=== PATIENT | male | born 1965 | race Two or more races ===

== ENCOUNTER 2017-11-14 07:15 | Emergency (ER) | payer OTHER ==
[~2017-11-14] VITALS: Ht 185.4 cm; Wt 134.7 kg
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
[2017-11-14] MEDS ORDERED: QUETIAPINE FUMARATE 25 MG TABLET ONE (07:29)
[2017-11-14] MEDS ORDERED: clonazePAM 1 MG TABLET ONE (07:29)
[2017-11-14] MEDS ORDERED: clonazePAM 1 MG TABLET PO ONE (07:30)
[2017-11-14] MEDS ORDERED: QUETIAPINE FUMARATE 100 MG TABLET PO SCH (07:30)
[2017-11-14 07:52] LABS: BASOPHILS % (AUTO) 0.6 % (0.0-2.0); EOSINOPHILS % (AUTO) 0.8 % (0.0-6.0); HEMATOCRIT 40 % (39-51); HEMOGLOBIN 13.7 g/dL (13.5-17.5); LYMPHOCYTES # (AUTO) 1.5 /CMM (0.8-4.8); LYMPHOCYTES % (AUTO) 20.7 % (20.0-44.0); MEAN CORPUSCULAR HGB CONC 34 g/dl (31.0-36.0); MEAN CORPUSCULAR VOLUME 86 fL (80-96); MONOCYTES # (AUTO) 0.4 /CMM (0.1-1.30); MONOCYTES % (AUTO) 5.5 % (2.0-12.0); NEUTROPHILS # (AUTO) 5.3 /CMM (1.8-8.9); NEUTROPHILS % (AUTO) 72.4 % (43.0-81.0); PLATELET COUNT (AUTO) 286 /CMM (150-450); RDW COEFFICIENT OF VARIATION 14.3 (11.5-15.0); RED BLOOD CELL COUNT(AUTO) 4.67 MIL/uL (4.5-6.0); WHITE BLOOD COUNT (AUTO) 7.3 K/uL (4.3-11.0)
[2017-11-14] MEDS ORDERED: ALBUTEROL FS 2.5 MG/0.5 ML VIAL.NEB NEB ONE (08:00)
[2017-11-14] MEDS ORDERED: ALBUTEROL FS 2.5 MG/0.5 ML VIAL.NEB ONE (08:02)
[2017-11-14 08:04] LABS: CALCIUM, SERUM 9.2 mg/dL (8.5-10.1); POTASSIUM 3.9 mmol/L (3.5-5.1)
[2017-11-14 08:18] LABS: ALBUMIN 3.7 g/dL (3.4-5.0); BILIRUBIN,DIRECT 0.2 mg/dL (0.0-0.2); BILIRUBIN,TOTAL 0.6 mg/dL (0.2-1.0); TOTAL PROTEIN, SERUM 7.7 g/dL (6.4-8.2)
[2017-11-14 08:19] LABS: SALICYLATE 2.3 mg/dL (2.8-20.0)
[2017-11-14] MEDS ORDERED: Fluoxetine 10 mg capsule PO ONE (09:00)
[2017-11-14 10:34] LABS: BILIRUBIN,URINE SMALL (NEGATIVE); BLOOD, URINE Moderate Ery/uL (NEGATIVE); KETONES,URINE 15 (NEGATIVE); LEUKOCYTE ESTERASE ,URINE Negative (NEGATIVE); NITRITE, URINE Negative (NEGATIVE); PH,URINE 5.5 (5.0-8.0); PROTEIN,URINE 30 mg/dl (NEGATIVE); UGLUCOSE Negative (NEGATIVE); UROBILINOGEN,URINE 0.2 EU/dL (0.2)
[2017-11-14 10:37] LABS: APPEARANCE,URINE HAZY (CLEAR); COLOR,URINE DARK YELLOW (YELLOW)
--- NOTE | 2017-11-14 10:39 | NUR ---
URINE OBTAINED SENT TO LAB
[2017-11-14 10:46] LABS: BACTERIA,URINE None seen /HPF (None Seen); SQUAMOUS EPITHELIAL CELL,UR Rare /HPF (None Seen); WBC,URINE 0-2 /HPF (0-3)
[2017-11-14 10:47] LABS: MUCUS,URINE Few /LPF (None Seen)
--- NOTE | 2017-11-14 12:43 | NUR ---
[place] [facility] [place] BY DR VALDOVINOS. CALL [phone] FOR REPORT.
[2017-11-14] MEDS ORDERED: ACETAMINOPHEN 325 MG TABLET PO ONE (15:30)
[2017-11-14] MEDS ORDERED: ACETAMINOPHEN 325 MG TABLET ONE (15:35)
--- NOTE | 2017-11-14 16:14 | NUR ---
CALLED ANANDA TO ARRANGE A S TRANSPORT TO [facility]. ETA OF 1635 WAS GIVEN.
[2017-11-14 17:17] VITALS: BP 126/84
== END 2017-11-14 17:19 | disposition home or self-care (01) ==
LOC: ER 07:17
DX: R45.851 Suicidal ideations (principal); J44.9 Chronic obstructive pulmonary disease, unspecified; I10 Essential (primary) hypertension; Z91.14 Patient's other noncompliance with medication regimen
CPT/HCPCS: 36415; 80048; 80076; 80305; 80329; 81001; 85025; 94640; 99284; A4606; G0480 ×2; Z7610; 81000-TC

== ENCOUNTER 2018-07-15 03:18 | Inpatient (IN) | payer OTHER ==
[2018-07-15] VITALS (38 sets, daily range): BP systolic 63–127; BP diastolic 28–99
[~2018-07-15] VITALS: Ht 175.3 cm; Wt 96.2 kg
--- NOTE | 2018-07-15 03:20 | NUR ---
PT BIBRA C/O SOB AND HYPERVENTILATING FROM [facility]. PT TACHYPNIC AND TACHYCARDIC. PT AAXO4. FOLLOWS COMMANDS. PT PUT ON THE MONITOR AND PULSE. AWAITING EVAL FROM EDMAR COLLIER.
[2018-07-15] MEDS ORDERED: LORAZEPAM INJ 2 MG/ML VIAL ONE (03:59)
[2018-07-15] MEDS ORDERED: LORAZEPAM INJ 2 MG/ML VIAL IV ONE (04:00)
[2018-07-15 04:10] LABS: BASOPHILS # (AUTO) 0.2 /CMM (0.0-0.2); BASOPHILS % (AUTO) 1.1 % (0.0-2.0); EOSINOPHILS % (AUTO) 0.1 % (0.0-6.0); HEMATOCRIT 43 % (39-51); HEMOGLOBIN 14.6 g/dL (13.5-17.5); LYMPHOCYTES # (AUTO) 2.1 /CMM (0.8-4.8); LYMPHOCYTES % (AUTO) 10.7 % (20.0-44.0); MEAN CORPUSCULAR HGB CONC 34 g/dl (31.0-36.0); MEAN CORPUSCULAR VOLUME 86 fL (80-96); MONOCYTES # (AUTO) 1.6 /CMM (0.1-1.30); MONOCYTES % (AUTO) 8.3 % (2.0-12.0); NEUTROPHILS # (AUTO) 15.4 /CMM (1.8-8.9); NEUTROPHILS % (AUTO) 79.8 % (43.0-81.0); PLATELET COUNT (AUTO) 413 /CMM (150-450); RED BLOOD CELL COUNT(AUTO) 5.04 MIL/uL (4.5-6.0); WHITE BLOOD COUNT (AUTO) 19.3 K/uL (4.3-11.0)
--- NOTE | 2018-07-15 04:10 | NUR ---
XRAY AT BEDSIDE.
[2018-07-15 04:25] LABS: CALCIUM, SERUM 9.4 mg/dL (8.5-10.1); CARBON DIOXIDE 22 mmol/L (21-32); CHLORIDE 100 mmol/L (98-107); CREATININE 1.6 mg/dL (0.6-1.3); GLUCOSE 149 mg/dL (74-106); POTASSIUM 4.1 mmol/L (3.5-5.1); SODIUM SERUM 137 mmol/L (136-145); UREA NITROGEN, BLOOD 15 mg/dL (7-18)
[2018-07-15 04:36] LABS: ALANINE AMINOTRANSFERASE 18 U/L (12-78); ALBUMIN 3.3 g/dL (3.4-5.0); ALKALINE PHOSPHATASE 104 U/L (46-116); ASPARTATE AMINOTRANSFERASE 15 U/L (15-37); B-TYPE NATRIURETIC PEPTIDE 304 PG/ML (0-125); BILIRUBIN,DIRECT 0.2 mg/dL (0.0-0.2); BILIRUBIN,TOTAL 0.8 mg/dL (0.2-1.0)
--- NOTE | 2018-07-15 04:45 | NUR ---
RT AT BEDSIDE FOR ABG.
--- NOTE | 2018-07-15 04:52 | NUR ---
EKG 2 CANCELLED BY EDMAR COLLIER.
--- NOTE | 2018-07-15 04:55 | NUR ---
ER MD, 3 RT, AND RN AT BEDSIDE EVALUATING PT VENTILATION IN THE 60'S. PT TACHYPNIC AND TACHYCARDIC.
--- NOTE | 2018-07-15 04:57 | NUR ---
PT POSITIONED IN HIGH-FOWLERS, RESPIRATIONS DECCREASED TO 30S.
[2018-07-15] MEDS ORDERED: PROPOFOL 100 ML IV PRN (05:00)
[2018-07-15] MEDS ORDERED: ETOMIDATE 2 MG/ML VIAL IV ONE (05:00)
[2018-07-15] MEDS ORDERED: SUCCINYLCHOLINE CHLORIDE 20 MG/ML VIAL IV ONE (05:00)
[2018-07-15] MEDS ORDERED: PIPERACILLIN /TAZOBACTAM 4.5 G in IV D5W 50 ML IV ONE (05:00)
[2018-07-15] MEDS ORDERED: VANCOMYCIN 2 GM in IV D5W 250 ML IV ONE (05:00)
[2018-07-15] MEDS ORDERED: IV NS 0.9% 1,000 ML BAG IV ONE (05:00)
--- NOTE | 2018-07-15 05:15 | NUR ---
PT PUT ON BIPAP, 20/8 50% O2. PT SATURATION 98% AND TACHYPNIC AT 40s, TACHYCARDIC AT 130S. ER AWARE.
[2018-07-15] MEDS ORDERED: VANCOMYCIN 500 MG VIAL ONE (05:21)
[2018-07-15] MEDS ORDERED: methylPREDNISolone SOD SUCC 125 MG/2ML VIAL IV ONE (05:30)
[2018-07-15] MEDS ORDERED: HEPARIN INFUSION/D5W 500 ML IV PRN (05:30)
[2018-07-15] MEDS ORDERED: methylPREDNISolone SOD SUCC 125 MG/2ML VIAL ONE (05:35)
[2018-07-15 05:36] LABS: BAND % (MANUAL) 3 % (0.0-5.0); LYMPHOCYTES % (MANUAL) 9 % (16-48); METAMYELOCYTES % 1 % (0-0); MONOCYTES % (MANUAL) 6 % (0-11.0); NEUTROPHILS % (MANUAL) 81 (42-76)
[2018-07-15] MEDS ORDERED: HEPARIN INFUSION/D5W 500 ML IV ONE (05:47)
--- NOTE | 2018-07-15 05:50 | NUR ---
ULTRASOUND AT BEDSIDE.
[2018-07-15] MEDS ORDERED: LEVALBUTEROL HCL NEB 1.25 MG/0.5 ML VIAL.NEB NEB SCH ×2 (06:00→07:35)
[2018-07-15] MEDS ORDERED: IPRATROPIUM NEB FS 0.5 MG/2.5 ML AMPUL.NEB NEB ONE (06:00)
[2018-07-15] MEDS ORDERED: HEPARIN SODIUM, PORCINE 5000 UNITS/1 ML VIAL ONE (06:19)
--- NOTE | 2018-07-15 06:20 | NUR ---
RT PT PLACED ON BIPAP PER MD ORDER ON CHARTED SETTINGS. ALARMS SET AND AUDIBLE. AMBUBAG AT BEDSIDE. BIPAP CONNECTED TO RED OUTLET. Addendum: 07/15/18 at 0622 by RHEA HUMPHRIES RT Amended: Links added.
--- NOTE | 2018-07-15 06:20 | NUR ---
PT TACHYPNIC AND TACHYCARDIC ON THE MONITOR, SATURATION 98% ON THE BIPAP. ER AWARE.
[2018-07-15] MEDS ORDERED: Z GUARD REMEDY 2 OZ OINT TP PRN (06:30)
[2018-07-15] MEDS ORDERED: HEPARIN SODIUM, PORCINE 5000 UNITS/1 ML VIAL IV ONE (06:30)
[2018-07-15] MEDS ORDERED: MAGNESIUM HYDROXIDE 30 ML UDC PO PRN (06:30)
[2018-07-15] MEDS ORDERED: ACETAMINOPHEN 325 MG TABLET PO PRN (06:30)
[2018-07-15] MEDS ORDERED: ONDANSETRON HCL/PF 4 MG/2 ML VIAL IVP PRN (06:30)
--- NOTE | 2018-07-15 06:50 | NUR ---
HEPARIN BOLUS AND DRIP VERIFIED WITH PHARMACIST. SECOND RN ABRAM CO-SIGN HEPARIN BOLUS AND DRIP.
[2018-07-15 06:57] LABS: ABG OXYGEN SATURATION 93.9 % (92.0-98.5); ABG PCO2 27.7 mmHg (35.0-45.0); ABG PH 7.526 (7.350-7.450); ABG PO2 70.6 mmHg (75.0-100.0); AaDO2 125.2 mmHg; COHb 1.1 % (0.5-1.5); MetHb 0.3 % (0.0-1.5); O2Hb 92.6 % (94.0-97.0); SITE, ABG Right Radial
--- NOTE | 2018-07-15 07:16 | NUR ---
RT AT BEDSIDE FOR ABG BLOOD DRAW.
[2018-07-15 07:27] LABS: ABG BASE EXCESS -2.2 mmol/L; ABG OXYGEN SATURATION 98.1 % (92.0-98.5); ABG PCO2 29.3 mmHg (35.0-45.0); ABG PH 7.461 (7.350-7.450); ABG PO2 122.7 mmHg (75.0-100.0); AaDO2 200.8 mmHg; COHb 0.6 % (0.5-1.5); MetHb 0.4 % (0.0-1.5); O2Hb 97.1 % (94.0-97.0); SITE, ABG Right Radial; VENT MODE, BG ST 20/8 RR 20 50%
--- NOTE | 2018-07-15 07:30 | NUR ---
REPORT GIVEN TO JESSE RODARTE FOR HUGO.
--- NOTE | 2018-07-15 07:50 | NUR ---
ACCESS REP: got pt. from ER, Dx: Resp/failure, sepsis, on heparin gtt 1800u/h now d/t PE?, CT was NOT done: overweight and pt.can/t lying flat by report, pt.is awake/Ox1, can follow simple commands, but drowsy (unable to get history correct inf.), on bipap 20/8, 50%FiO2, RR 20-26, SR, BP 93/67, got 2L NS in ER, pH 7.52/27/70, skin is intact, all Atbxs given by report, urinated via underwear, PTT 33
[2018-07-15] MEDS ORDERED: ALLO100T PO (07:53)
[2018-07-15] MEDS ORDERED: BENZ1LOZ12 MM (07:53)
[2018-07-15] MEDS ORDERED: METH500T PO (07:53)
[2018-07-15] MEDS ORDERED: QUET300T2 PO (07:53)
[2018-07-15] MEDS ORDERED: ASPI-1169 PO (07:53)
[2018-07-15] MEDS ORDERED: QUET25TA PO (07:53)
[2018-07-15] MEDS ORDERED: MULT-24 PO (07:53)
[2018-07-15] MEDS ORDERED: ATOR10TA PO (07:53)
[2018-07-15] MEDS ORDERED: FLUO-120 PO (07:53)
[2018-07-15] MEDS ORDERED: BUPR100T6 PO (07:53)
[2018-07-15] MEDS ORDERED: ZOLP10TA6 PO (07:53)
[2018-07-15] MEDS ORDERED: IBUP-1955 PO (07:53)
[2018-07-15] MEDS ORDERED: AMLO10TA7 PO (07:53)
[2018-07-15] MEDS ORDERED: ALBU18HF2 IH (07:53)
[2018-07-15] MEDS ORDERED: LORA1TAB PO (07:53)
[2018-07-15] MEDS ORDERED: HYDR-4384 PO (07:53)
--- NOTE | 2018-07-15 08:00 | NUR ---
CHIEF OPERATOR HYDROFORMER: no order for next PTT by protocol, will reevaluate, pt.is on Heparin gtt, no IVF by report, belong.form is not in chart
[2018-07-15] MEDS ORDERED: FEE PK DOSING 1 MIN EA MC ONE (08:42)
--- NOTE | 2018-07-15 09:00 | NUR ---
YEAST SUPERVISOR: applied two BP cuffs for correct monitoring/obesity, SBP 75-107, SR, Bipap beeping/adjusted mask position, called RT
--- NOTE | 2018-07-15 09:30 | NUR ---
MASON APPRENTICE: placed order for PTT at 12.45, is in room, updated with pt.history, orders, VS, meds, Heparin gtt, spoke with RT, d/domingo bipap, continue O2n/c.
[2018-07-15] MEDS: methylPREDNISolone SOD SUCC 40 MG/ML VIAL IV SCH ×3 (09:58→17:11)
--- NOTE | 2018-07-15 10:30 | NUR ---
EMERGENCY DEPARTMENT DIRECTOR: was in room, updated by charge nurse, ordered: cardiac diet
[2018-07-15] MEDS: IPRATROPIUM NEB FS 0.5 MG/2.5 ML AMPUL.NEB NEB SCH ×3 (11:00→19:46)
[2018-07-15] MEDS ORDERED: PIPERACILLIN /TAZOBACTAM 4.5 G in IV D5W 50 ML IV SCH (12:00)
--- NOTE | 2018-07-15 12:20 | NUR ---
SENIOR PROJECT MANAGER: D-dimer 0.54, charge nurse sent message for
--- NOTE | 2018-07-15 12:30 | NUR ---
NEIGHBORHOOD PLANNER: PTT 75.8 now, Heparin gtt rate adjustment down by 200inys, continue 1600 units/h
--- NOTE | 2018-07-15 12:35 | NUR ---
ELECTRONICS ENGINEERING MANAGER: sent message back: stop Heparin gtt, pt.refused ABG
--- NOTE | 2018-07-15 12:39 | NUR ---
ATTEMPTED ABG ONCE. UNABLE TO GET ABG. PT REFUSED AND STATED HE "DOESNT WANT THE ABG AND WANTS TO BE DISCHARGED."
--- NOTE | 2018-07-15 12:45 | NUR ---
SHANK SCOURER: charge nurse evaluated Dr.Peleg schaeffer
--- NOTE | 2018-07-15 13:00 | NUR ---
GREY PERCHER: updated, ordered: UA, pt.is still refusing to use urine container to urine, denies bladder scanner, said: I am doing everything when I want to do.
--- NOTE | 2018-07-15 13:10 | NUR ---
BALLISTICS PROFESSOR: pt.is A/Ox3, needy, uncooperative, O2sat. now over 95%, no SOB, no wheezing, SR, no any pain now, skin care is done, refused to check BP, oriented again re: Dx, risks, POC, said: I am going to discharge soon.
[2018-07-15] MEDS: PIPERACILLIN /TAZOBACTAM 3.375 G in IV D5W 100 ML IV SCH ×2 (14:08→21:01)
[2018-07-15] MEDS: ALBUTEROL FS 2.5 MG/0.5 ML VIAL.NEB NEB SCH ×2 (14:17→19:46)
[2018-07-15 16:37] LABS: APPEARANCE,URINE CLEAR (CLEAR); BILIRUBIN,URINE NEGATIVE (NEGATIVE); BLOOD, URINE TRACE-INTA Ery/uL (NEGATIVE); COLOR,URINE DARK YELLO (YELLOW); KETONES,URINE TRACE (NEGATIVE); LEUKOCYTE ESTERASE ,URINE NEGATIVE (NEGATIVE); NITRITE, URINE NEGATIVE (NEGATIVE); PH,URINE 5.5 (5.0-8.0); PROTEIN,URINE 2+ mg/dl (NEGATIVE); UGLUCOSE NEGATIVE (NEGATIVE); UROBILINOGEN,URINE 0.2 EU/dL (0.2)
[2018-07-15 17:01] LABS: BACTERIA,URINE Rare /HPF (None Seen); HYALINE CASTS, URINE Few /LPF (None Seen); MUCUS,URINE Moderate /LPF (None Seen); SQUAMOUS EPITHELIAL CELL,UR None Seen /HPF (None Seen)
--- NOTE | 2018-07-15 17:45 | NUR ---
SENIOR ADULTS DIRECTOR: got pt. from ER with bag with cell phone, purse, documents, belt, underwear, asking: were is his cloths, shoes, ER confirmed: nothing there, pt.calls to SNF to get it. Pt. is uncooperative, removed EKG leads, [id number], BP cuff again, reapplied/got aware need to monitoring d/t low BP episodes, stated needs albuterol pills (no neb.), notified RT/RT spoke with pt for resp.Tx reevaluation, will notify next shift, charge nurse is aware. was paged by charge nurse/called back/aware to verify pt.home meds, pt.came from [facility], pharmacy notified.
[2018-07-15] MEDS ORDERED: IBUPROFEN 600 MG TABLET PO PRN (18:30)
[2018-07-15] MEDS ORDERED: HYDROCODONE/APAP 5/325MG 1 EACH TABLET PO PRN (18:30)
[2018-07-15] MEDS ORDERED: METHOCARBAMOL (500MG) 500 MG TABLET PO PRN (18:30)
--- NOTE | 2018-07-15 18:51 | NUR ---
NET MAKING SUPERVISOR: pharmacy called, creatinine 1.6, Huy needs to be verify with MD tomorrow, will notify next nurse
[2018-07-15] MEDS ORDERED: MENTHOL/CETYLPYRD (CEPACOL) 1 LOZ LOZENGE MM PRN (19:00)
[2018-07-15] MEDS ORDERED: ALBUTEROL FS 2.5 MG/0.5 ML VIAL.NEB NEB PRN (19:30)
--- NOTE | 2018-07-15 19:30 | NUR ---
Received patient AAO X 4 ambulating in room off monitoring and evaluation advisor,O2 NC and pulse OX.He said wants to wash himself and will call when done.IVF not started since am shift.No acute distress noted.Patient very loud and shouting.Reminded patient he is in ICU to tone down his voice.
[2018-07-15] MEDS: IV NS 0.9% 1,000 ML IV PRN (19:58)
[2018-07-15] MEDS ORDERED: QUETIAPINE FUMARATE 100 MG TABLET ONE (20:19)
[2018-07-15] MEDS ORDERED: ATORVASTATIN 10 MG TABLET ONE (20:19)
[2018-07-15] MEDS: QUETIAPINE FUMARATE 100 MG TABLET PO SCH (20:22)
[2018-07-15] MEDS: ATORVASTATIN 10 MG TABLET PO SCH (20:23)
--- NOTE | 2018-07-15 20:23 | NUR ---
Patient demanded his scheduled medications at 2200 be given now and asking for food and juice. He is always on the phone and shouting.Able to connect to surveillance system monitor,BP and pulse ox but refused oxygen even if he is desat to 87%-89%.Mendon administered for pain.
[2018-07-15] MEDS: HYDROCODONE/APAP 5/325MG 1 EACH TABLET PO PRN (20:24)
[2018-07-15] MEDS: ZOLPIDEM TARTRATE 5 MG TABLET PO PRN (21:54)
--- NOTE | 2018-07-15 21:55 | NUR ---
Patient demanded to have more juice and food and Ambien for sleep.Provided sandwich and apple juice.Explained to patient that he is to limit fluid intake due to elevated BNP. But remain non compliant.Continue to monitor.
--- NOTE | 2018-07-15 22:30 | NUR ---
Placed on Bipap by Lyle MIGUEL.Settings 20/8,FIO2 50% rate 20.Tolerating well.
[2018-07-15] MEDS: VANCOMYCIN 1.5 GM in IV D5W 500 ML IV SCH (23:45)
[2018-07-16] VITALS (18 sets, daily range): BP systolic 89–124; BP diastolic 37–81
--- NOTE | 2018-07-16 | NUR ---
Crackers provided as requested.
[2018-07-16] MEDS: ALBUTEROL FS 2.5 MG/0.5 ML VIAL.NEB NEB SCH ×4 (01:18→19:56)
--- NOTE | 2018-07-16 02:00 | NUR ---
Patient doze off and on.VS stable.IVF infusing well.
--- NOTE | 2018-07-16 03:25 | NUR ---
Patient requested Bipap off RT at bedside.Patient disconnected self from surveillance monitor,BP and pulse ox.Ambulated to restroom independently.No distress noted.Voided.Refused to use urinal.
--- NOTE | 2018-07-16 03:45 | NUR ---
Patient back from restroom with his street clothes on shirt and short.Asked patient to use hospital gown but he just put on top of his clothes.Provide tooth brush,tooth paste and mouth wash as requested.Refused to use O2 Nasal cannula.SPO2 90%.No distress noted.
[2018-07-16 04:29] LABS: BASOPHILS # (AUTO) 0.1 /CMM (0.0-0.2); BASOPHILS % (AUTO) 0.6 % (0.0-2.0); EOSINOPHILS % (AUTO) 0.1 % (0.0-6.0); HEMATOCRIT 37 % (39-51); HEMOGLOBIN 12.2 g/dL (13.5-17.5); LYMPHOCYTES # (AUTO) 1.1 /CMM (0.8-4.8); LYMPHOCYTES % (AUTO) 5.1 % (20.0-44.0); MEAN CORPUSCULAR HGB CONC 33 g/dl (31.0-36.0); MEAN CORPUSCULAR VOLUME 87 fL (80-96); MONOCYTES # (AUTO) 0.7 /CMM (0.1-1.30); MONOCYTES % (AUTO) 3.2 % (2.0-12.0); NEUTROPHILS # (AUTO) 18.7 /CMM (1.8-8.9); PLATELET COUNT (AUTO) 327 /CMM (150-450); RED BLOOD CELL COUNT(AUTO) 4.23 MIL/uL (4.5-6.0); WHITE BLOOD COUNT (AUTO) 20.5 K/uL (4.3-11.0)
[2018-07-16 04:39] LABS: CALCIUM, SERUM 8.8 mg/dL (8.5-10.1); CREATININE 2.2 mg/dL (0.6-1.3); MAGNESIUM 1.9 mg/dL (1.8-2.4); PHOSPHORUS 3.4 mg/dL (2.5-4.9); POTASSIUM 3.7 mmol/L (3.5-5.1)
[2018-07-16 04:48] LABS: THYROID STIMULATING HORMONE 0.541 uIU/mL (0.358-3.74)
[2018-07-16] MEDS: PIPERACILLIN /TAZOBACTAM 3.375 G in IV D5W 100 ML IV SCH ×3 (05:03→20:25)
--- NOTE | 2018-07-16 06:32 | NUR ---
Patient resting appears comfortable.VS remains stable.SPO2 90%-91% in RA.Call light within reach.
--- NOTE | 2018-07-16 06:56 | NUR ---
Patient remains non compliant.With sob on exertion while ambulating to restroom. Refused O2 NC and not using urinal to measure output.
[2018-07-16] MEDS: IPRATROPIUM NEB FS 0.5 MG/2.5 ML AMPUL.NEB NEB SCH ×3 (07:14→19:55)
--- NOTE | 2018-07-16 07:30 | NUR ---
INITIAL PT RESTING IN BED ALERT AND ORIENTED X 3 WHEN ASKED HOW IS HE DOING TODAY PT STATES NOT GOOD AND C/O NECK AND BACK PAIN MEDICATIONS GIVEN. PT ON PROOF TECHNICIAN HELPER NSR 90'S PT HAS NS @ 75 MLS/HR THROUGH 18 G RIGHT FA AND H/L 20 LEFT WRIST BOTH SITES CLEAN DRY AND INTACT. PT GIVEN BREAKFAST TRAY BED IN LOW POSITION CALL ZIEGLER NEXT TO PT WILL CONTINUE TO MONITOR
[2018-07-16] MEDS: LORAZEPAM 1 MG TABLET PO PRN (08:10)
[2018-07-16] MEDS: HYDROCODONE/APAP 5/325MG 1 EACH TABLET PO PRN ×4 (08:10→23:12)
[2018-07-16] MEDS: ALLOPURINOL 100 MG TABLET PO SCH (09:30)
[2018-07-16] MEDS: methylPREDNISolone SOD SUCC 40 MG/ML VIAL IV SCH (09:30)
[2018-07-16] MEDS: buPROPion SR 100 MG TABLET.ER PO SCH (09:30)
[2018-07-16] MEDS: QUETIAPINE FUMARATE 100 MG TABLET PO SCH ×2 (09:30→21:18)
[2018-07-16] MEDS: MULTIVITAMINS,THERAGRAN 1 UDTAB TABLET PO SCH (09:30)
[2018-07-16] MEDS: FLUOXETINE HCL 20 MG CAPSULE PO SCH (09:30)
[2018-07-16] MEDS: AMLODIPINE BESYLATE 10 MG TABLET PO SCH (09:31)
--- NOTE | 2018-07-16 11:31 | NUR ---
PT EVALUATED BY PULP MILL TEAM LEADER URINE SAMPLE OBTAINED LAB CALLED. PT UP TO BATH ROOM FOR SAMPLE PT IN STREET CLOTHES STATES HE IS READY TO GO PT NOTIFIED PT IS DOWN GRADED WILL STAY IN HOSPITAL
--- NOTE | 2018-07-16 13:00 | NUR ---
PT TRANSFERRED FROM ICU VIA WHEELCHAIR. PT AWAKE A/OX4 , BREATHING UNLABORED AND EVEN ON NC 2L O2 SAT 95%IV LINE RFA FLUSHING WELL, L WRIST IV LINE REMOVED DUE TO PT COMPLAIN OF PAIN AT THE SITE. SKIN INTACT , NO COMPLAIN OF PAIN REPORTED AT THIS TIME. PT ON ANTIBIOTIC THERAPY .GAIT STEADY, AMBULATES NEEDED. PT ORIENTED TO THE UNIT. SAFETY MEASURES IN PLACE , CALL LIGHT WITHIN REACH
--- NOTE | 2018-07-16 13:35 | NUR ---
REPORT GIVEN TO [facility] FOR 3 WALKER PT TRANSFERRED TO [facility] SAFELY
[2018-07-16] MEDS: IV NS 0.9% 1,000 ML IV PRN (14:20)
[2018-07-16] MEDS: VANCOMYCIN 1.5 GM in IV D5W 500 ML IV SCH (17:25)
[2018-07-16 17:31] LABS: APPEARANCE,URINE CLEAR (CLEAR); BILIRUBIN,URINE NEGATIVE (NEGATIVE); BLOOD, URINE TRACE Ery/uL (NEGATIVE); COLOR,URINE YELLOW (YELLOW); KETONES,URINE NEGATIVE (NEGATIVE); LEUKOCYTE ESTERASE ,URINE NEGATIVE (NEGATIVE); NITRITE, URINE NEGATIVE (NEGATIVE); PH,URINE 5.5 (5.0-8.0); PROTEIN,URINE NEGATIVE (NEGATIVE); UGLUCOSE 1+ mg/dL (NEGATIVE); UROBILINOGEN,URINE 0.2 EU/dL (0.2)
[2018-07-16] MEDS: MAG HYDROX/AL HYDROX/SIMETH 30 ML UDC PO PRN (17:38)
[2018-07-16 17:42] LABS: BACTERIA,URINE None seen /HPF (None Seen); RBC,URINE 0-2 /HPF (0-2); SQUAMOUS EPITHELIAL CELL,UR Rare /HPF (None Seen); URIC ACID CRYSTALS,URINE Few /HPF (None Seen); WBC,URINE 0-2 /HPF (0-3)
[2018-07-16 17:43] LABS: EOSINOPHIL,URINE None Seen
[2018-07-16 17:48] LABS: URINE TOTAL PROTEIN 22.3 mg/dL (0-11.9)
--- NOTE | 2018-07-16 19:00 | NUR ---
SADDLE AND HARNESS MAKER OPENING NOTES Received patient A/O X4, on Liu's position on bed, watching TV. With patent peripheral IV line RAC G#18 with NS @ 75ml/hr hold, with Vanco on going. Patient complaints of heartburn, had Maalox 1.5 hours ago. On O2 @ 2LPM, saturating well. No SOB/respiratory distress noted. Kept bed low and locked, siderails x2. Call light at bedside. Will continue to monitor accordingly. Addendum: 07/16/18 at 2055 by JHONATHAN STOUT RN On tele - SR.
[2018-07-16] MEDS: ATORVASTATIN 10 MG TABLET PO SCH (21:18)
[2018-07-16] MEDS: ZOLPIDEM TARTRATE 5 MG TABLET PO PRN (21:18)
[2018-07-16] MEDS ORDERED: FAMOTIDINE (20 MG) 20 MG TABLET PO ONE (23:00)
--- NOTE | 2018-07-16 23:30 | NUR ---
VICE PRESIDENT OF PRODUCT MARKETING NOTES Patient complained heartburn, claiming Maalox not effective. Notified cotton feeder MD, with order Famotidine one time only - noted and carried out. Will continue to monitor accordingly.
[2018-07-17 00:27] VITALS: BP 100/61
[2018-07-17] MEDS: ALBUTEROL FS 2.5 MG/0.5 ML VIAL.NEB NEB SCH ×4 (01:30→20:15)
[2018-07-17] MEDS: PIPERACILLIN /TAZOBACTAM 3.375 G in IV D5W 100 ML IV SCH ×3 (05:11→20:18)
--- NOTE | 2018-07-17 06:24 | NUR ---
MICROARRAY OPERATIONS VICE PRESIDENT CLOSING NOTES Patient asleep on semi-Liu's position on bed with patent peripheral IV line with Zosyn on extended dose on going. On tele monitor with SR and occasional Sinus Tach 120 the highest. Able to ambulate self to bathroom. All due meds given as ordered, no ASE noted. On supplemental O2, saturating well. All nursing needs attended. Kept bed low and locked, siderail x2 up. Call light within easy reach. Endorsed to the next shift.
[2018-07-17 07:03] LABS: BASOPHILS # (AUTO) 0.1 /CMM (0.0-0.2); BASOPHILS % (AUTO) 0.4 % (0.0-2.0); EOSINOPHILS % (AUTO) 0.1 % (0.0-6.0); HEMATOCRIT 36 % (39-51); HEMOGLOBIN 11.8 g/dL (13.5-17.5); LYMPHOCYTES % (AUTO) 6.9 % (20.0-44.0); MEAN CORPUSCULAR HGB CONC 33 g/dl (31.0-36.0); MEAN CORPUSCULAR VOLUME 88 fL (80-96); MONOCYTES # (AUTO) 0.7 /CMM (0.1-1.30); MONOCYTES % (AUTO) 4.3 % (2.0-12.0); NEUTROPHILS # (AUTO) 13.3 /CMM (1.8-8.9); NEUTROPHILS % (AUTO) 88.3 % (43.0-81.0); PLATELET COUNT (AUTO) 370 /CMM (150-450); RED BLOOD CELL COUNT(AUTO) 4.09 MIL/uL (4.5-6.0)
[2018-07-17 07:35] LABS: ALBUMIN 2.5 g/dL (3.4-5.0); BILIRUBIN,TOTAL 0.2 mg/dL (0.2-1.0); CALCIUM, SERUM 8.8 mg/dL (8.5-10.1); CREATININE 1.5 mg/dL (0.6-1.3); MAGNESIUM 2.4 mg/dL (1.8-2.4); PHOSPHORUS 2.8 mg/dL (2.5-4.9); POTASSIUM 4.8 mmol/L (3.5-5.1); TOTAL PROTEIN, SERUM 6.7 g/dL (6.4-8.2)
[2018-07-17] MEDS: IPRATROPIUM NEB FS 0.5 MG/2.5 ML AMPUL.NEB NEB SCH ×3 (07:35→20:15)
--- NOTE | 2018-07-17 07:54 | NUR ---
BEAN DUMPER NOTES PATIENT IN BED RESTING ALERT, ORIENTED X3 DENIES ANY PAIN OR DISCOMFORTS.BED IN LOW LOCKED POSITION CALL LIGHT WITHIN REACH WILL CONTINUE TO MONITOR.
[2018-07-17 08:00] VITALS: BP 119/70
[2018-07-17] MEDS: methylPREDNISolone SOD SUCC 40 MG/ML VIAL IV SCH (08:40)
[2018-07-17] MEDS: FLUOXETINE HCL 20 MG CAPSULE PO SCH (08:40)
[2018-07-17] MEDS: MULTIVITAMINS,THERAGRAN 1 UDTAB TABLET PO SCH (08:40)
[2018-07-17] MEDS: AMLODIPINE BESYLATE 10 MG TABLET PO SCH (08:40)
[2018-07-17] MEDS: ALLOPURINOL 100 MG TABLET PO SCH (08:40)
[2018-07-17] MEDS: QUETIAPINE FUMARATE 100 MG TABLET PO SCH ×2 (08:40→21:11)
[2018-07-17] MEDS: buPROPion SR 100 MG TABLET.ER PO SCH (09:34)
[2018-07-17] MEDS: MAG HYDROX/AL HYDROX/SIMETH 30 ML UDC PO PRN ×2 (11:16→21:37)
[2018-07-17] MEDS: VANCOMYCIN 1.5 GM in IV D5W 500 ML IV SCH (12:06)
[2018-07-17] MEDS: LORAZEPAM 1 MG TABLET PO PRN ×2 (12:09→21:12)
--- NOTE | 2018-07-17 13:22 | NUR ---
Social service consult requested by Dr. Perea regarding pt. coming from [facility]. Pt. is a 53 -[place] male who was admitted to [facility] for respiratory failure. Pt. was initially in ICU for respiratory distress. LINDA met with pt. in his room. Pt. is alert and oriented x 4. Pt. was sitting in his chair and looking at his cellphone. Pt. had a defensive demeanor when answering questions. Pt. states he is homeless and has been for the past 3 years. Prior to being homeless, pt. was living with his before she got sick. Pt. states he is very Depressed and takes Seroquel and Wellbutrin. Pt. was at [facility] prior to coming to [facility]. Pt. is denying suicidal and homicidal ideations and visual/auditory hallucinations at this time. Pt. does not want to go to [facility]. LINDA offered pt. winter care home placement, however pt. got upset and declined. Pt. stated he has tried [facility], [facility] and [facility] and didn't find them helpful. Pt. is now linked with services from [facility]. Pt. states he had an appointment with [facility] on Tuesday last week, however he was hospitalized and couldn't go. Pt. will follow up with [facility] once discharged from [facility]. When LINDA inquired if he received any SSI, Pt. became upset and stated, " none of your business." LINDA informed LINDA she will offer him Homeless resources prior to his discharge from [facility]. No other social service needs are requested at this time. SW is available, if needed.
[2018-07-17 16:00] VITALS: BP 125/87
[2018-07-17] MEDS: LACTOBACILLUS RHAMNOSUS GG 1 EACH CAP.SPRINK PO SCH (17:29)
--- NOTE | 2018-07-17 18:40 | NUR ---
MS RN NOTES PATIENT IN BED RESTING NO SOB OR ACUTE DISTRESS NOTED. PATIENT ALERT, ORIENTED X3 ALL DUE MEDICATIONS ADMINISTERED. ALL NEEDS MET. NO ACUTE CHANGES NOTED. WILL ENDORSE TO PM SHIFT HUGO.
--- NOTE | 2018-07-17 19:10 | NUR ---
MS RN OPENING NOTES Received patient asleep on L sidelying position. With patent peripheral IV line RAC G#20 with NS infusing well @ 75ml/hr as ordered. On O2 inhalation @ 2LPM via NC, no SOB/respiratory distress noted. Kept bed low and locked, siderails X2 up. Call light at bedside. Will continue to monitor accordingly.
--- NOTE | 2018-07-17 19:51 | NUR ---
MS RODARTE CLOSING NOTES Received patient asleep on L sidelying position. With patent peripheral IV line RAC G#20 with NS infusing well @ 75ml/hr as ordered. On O2 inhalation @ 2LPM via NC, no SOB/respiratory distress noted. Kept bed low and locked, siderails X2 up. Call light at bedside. Will continue to monitor accordingly. Addendum: 07/18/18 at 0056 by JHONATHAN STOUT RN DUPLICATE
[2018-07-17 20:00] VITALS: BP 133/83
[2018-07-17] MEDS: ATORVASTATIN 10 MG TABLET PO SCH (21:11)
[2018-07-17] MEDS: HYDROCODONE/APAP 5/325MG 1 EACH TABLET PO PRN (21:12)
--- NOTE | 2018-07-17 22:00 | NUR ---
MS RODARTE OPENING NOTES Received patient asleep on L sidelying position. With patent peripheral IV line RAC G#20 with NS infusing well @ 75ml/hr as ordered. On O2 inhalation @ 2LPM via NC, no SOB/respiratory distress noted. Kept bed low and locked, siderails X2 up. Call light at bedside. Will continue to monitor accordingly. Addendum: 07/18/18 at 0057 by JHONATHAN STOUT RN WRONG TIME STAMP
--- NOTE | 2018-07-17 22:00 | NUR ---
MS RN NOTES Patient refused BiPAP. Explained the benefits of using BiPAP machine. Patient insisted to refused. Monitored closely.
[2018-07-18] MEDS: ALBUTEROL FS 2.5 MG/0.5 ML VIAL.NEB NEB SCH ×3 (01:19→13:30)
[2018-07-18] MEDS: PIPERACILLIN /TAZOBACTAM 3.375 G in IV D5W 100 ML IV SCH ×3 (04:00→13:23)
[2018-07-18 05:58] LABS: CALCIUM, SERUM 9.2 mg/dL (8.5-10.1); CREATININE 1.2 mg/dL (0.6-1.3); POTASSIUM 4.3 mmol/L (3.5-5.1)
[2018-07-18] MEDS: VANCOMYCIN 1.5 GM in IV D5W 500 ML IV SCH (06:07)
--- NOTE | 2018-07-18 06:32 | NUR ---
MS CLOSING NOTES Patient asleep on semi-Liu's position with patent peripheral IV line RFA G#20 with NS infusing well @ 75ml/hr as ordered. no s/x of infiltration noted. On RA, no SOB/respiratory distress noted. Patient refused the use of BiPAP at night. All due meds given as ordered, no ASE noted. All needs attended. Kept bed low and locked, side rails x 2 up. Call light at bedside. Afebrile the whole shift. No new unusualities noted. Endorsed to the next shift.
[2018-07-18 06:37] LABS: BASOPHILS # (AUTO) 0.1 /CMM (0.0-0.2); BASOPHILS % (AUTO) 0.9 % (0.0-2.0); EOSINOPHILS % (AUTO) 0.6 % (0.0-6.0); HEMATOCRIT 36 % (39-51); HEMOGLOBIN 12.1 g/dL (13.5-17.5); LYMPHOCYTES # (AUTO) 1.9 /CMM (0.8-4.8); LYMPHOCYTES % (AUTO) 18.7 % (20.0-44.0); MEAN CORPUSCULAR HGB CONC 33 g/dl (31.0-36.0); MEAN CORPUSCULAR VOLUME 88 fL (80-96); MONOCYTES # (AUTO) 0.7 /CMM (0.1-1.30); MONOCYTES % (AUTO) 6.9 % (2.0-12.0); NEUTROPHILS # (AUTO) 7.5 /CMM (1.8-8.9); NEUTROPHILS % (AUTO) 72.9 % (43.0-81.0); PLATELET COUNT (AUTO) 408 /CMM (150-450); RED BLOOD CELL COUNT(AUTO) 4.13 MIL/uL (4.5-6.0); WHITE BLOOD COUNT (AUTO) 10.3 K/uL (4.3-11.0)
--- NOTE | 2018-07-18 07:56 | NUR ---
MS RN NOTES PATIENT IN BED RESTING ALERT, ORIENTED X3 DENIES ANY PAIN OR DISCOMFORTS.BED IN LOW LOCKED POSITION CALL LIGHT WITHIN REACH WILL CONTINUE TO MONITOR.
[2018-07-18 08:00] VITALS: BP 125/83
[2018-07-18] MEDS: IPRATROPIUM NEB FS 0.5 MG/2.5 ML AMPUL.NEB NEB SCH ×2 (08:12→13:30)
[2018-07-18 08:47] VITALS: BP 125/83
[2018-07-18] MEDS: AMLODIPINE BESYLATE 10 MG TABLET PO SCH (08:47)
[2018-07-18] MEDS: MULTIVITAMINS,THERAGRAN 1 UDTAB TABLET PO SCH (08:47)
[2018-07-18] MEDS: LACTOBACILLUS RHAMNOSUS GG 1 EACH CAP.SPRINK PO SCH (08:47)
[2018-07-18] MEDS: methylPREDNISolone SOD SUCC 40 MG/ML VIAL IV SCH (08:47)
[2018-07-18] MEDS: FLUOXETINE HCL 20 MG CAPSULE PO SCH (08:47)
[2018-07-18] MEDS: QUETIAPINE FUMARATE 100 MG TABLET PO SCH (08:48)
[2018-07-18] MEDS: ALLOPURINOL 100 MG TABLET PO SCH (08:48)
[2018-07-18] MEDS: buPROPion SR 100 MG TABLET.ER PO SCH (08:53)
[2018-07-18 09:28] LABS: LYMPHOCYTES % (MANUAL) 12 % (16-48); MONOCYTES % (MANUAL) 8 % (0-11.0); NEUTROPHILS % (MANUAL) 80 (42-76)
[2018-07-18] MEDS ORDERED: METH4TAB3 PO (09:53)
[2018-07-18] MEDS ORDERED: LEVO750T21 PO (09:53)
--- NOTE | 2018-07-18 10:31 | NUR ---
LINDA and pt's RN Sana met with pt. to discuss discharge plan. Pt. states he is very depressed. Pt. wants voluntary psychiatric hospitalization stating he is suicidal with a plan to cut his wrists. LINDA to refer pt. to [facility], where pt. was prior to coming to [facility] on 07/15/18.
--- NOTE | 2018-07-18 10:35 | NUR ---
LINDA faxed clinical referral packet to intake at [facility] .
--- NOTE | 2018-07-18 11:51 | NUR ---
LINDA called intake at [facility] and spoke to Charmaine who informed SW that they will accept the pt. and accepting doctor is Dr. Mancia. Charmaine to call LINDA back once she speaks with the charge nurse at [facility] to give contact number for nurse to nurse report. Charmaine also informed LINDA to ask pt. to be nicer since pt. is rude to staff there as well as here at [facility]. LINDA called pt's RN Sana and updated her with the aforementioned information.
--- NOTE | 2018-07-18 13:00 | NUR ---
MS RN NOTES PATIENT NOTED AT NURSING STATION YELLING AT NURSING STAFF STATING HE NEEDS HIS IV REMOVED IMMEDIATELY AND WHY HAS HE BEEN WAITING THIS LONG TO BE DISCHARGED. CHARGE NURSE TRIED CALMING PATIENT AND ASKED PATIENT TO RETURN TO ROOM. PATIENT RETURNED TO ROM PERIPHERAL IV REMOVED EXPLAINED THAT WE ARE WAITING FOR BOND WRITER TO SEE IS [facility] IS [facility] PATIENT PER HIS REQUEST. PATIENT VERBALIZED UNDERSTANDING.
--- NOTE | 2018-07-18 14:59 | NUR ---
LINDA received a call from [facility] stating she spoke to gas charger Oliver at [facility] who informed her that they will not be able to accept pt. due to pt. being on Bipap at night and needing a sleep study. LINDA met with pt. bedside with [facility] and to inform him that [facility] did not accept him due to being on bipap. Pt. got upset and stated, " I don't need bipap." SW reiterated to the pt. that it [facility] decision to not accept pt. Pt. has his car in the parking lot and would like to get to his car. Taxi voucher was provided for transportation. Pt. was also provided with a sandwich and juice. SW gave pt. the following homeless resources: [phone] [facility], Homeless Resource directory. SW also gave pt. the following list of resources: Mental Health clinics [facility] [address] [place], [place] [id number] [facility] [place] [address] [facility], 2nd [place] [address] Main Number: Adult Full Service Partnership (AFSP): Contact [place] [facility] [address] [place] [address] [facility] [address] [place] [address] Healthcare Clinics for Homeless patients [facility] [address], [address] [place]. [place] Hours: M, T, Th, F 8:30AM-4:30PM Walk-ins allowed Provide medical screening and pharmacy [facility] [address] [place] [address] Hours M-F 8AM-3:30PM Walk-ins allowed Provide medical screening and pharmacy [facility] [address] [facility]. [place] [address] [phone] Hours 8AM-4:30PM Walk-ins allowed Provide medical screening and pharmacy Pt. accepted all of the above resources. Homeless Patient Waiver form was signed by the pt. and placed in pt's chart. No other social service needs are requested at this time. SW is available, if needed. Addendum: 07/18/18 at 1506 by JACOB MCKEON Pt's car is located at [address] [place] [address] in [facility] and taxi transportation was provided.
--- NOTE | 2018-07-18 15:00 | NUR ---
MS RN NOTES PATIENT DISCHARGED HOME [facility] DID NOT ACCEPT PATIENT FOR PSYCHIATRIC ADMISSION. PATIENT PROVIDED WITH TAXI VOUCHER. PATIENT NOTED TO BE AGGRESSIVE STAFF. CALLING STAFF MEMBERS NAMES. [place] [employer] INVOLVED. PATIENT REFUSED HOMELESS RESOURCES STATES HE HAS ALL THE RESOURCES HE NEEDS. PATIENT SIGNED DISCHARGE PAPERWORK. PRESCRIPTION PROVIDED PRESCRIPTION. VERBALIZES DISCHARGE UNDERSTANDING. IN STABLE CONDITION. ESCORTED TO TAXI BY HYDRAULIC PRESS OPERATOR.
[2018-07-19] MEDS ORDERED: predniSONE 20 MG TABLET PO SCH (09:00)
== END 2018-07-18 15:00 | disposition home or self-care (01) | DRG 720 ==
LOC: ER 03:19 → ICU 06:18 → TELE 07-16 13:08 → MED 07-17 10:54
PROVIDERS: ADMIT Family Medicine; ATTEND Nurse Practitioner Acute Care
PROC: 5A09357 Assistance with Respiratory Ventilation, Less than 24 Consecutive Hours, Continuous Positive Airway Pressure (ICD-10-PCS; principal; 2018-07-15)
DX: A41.9 Sepsis, unspecified organism (principal); N17.0 Acute kidney failure with tubular necrosis; J96.01 Acute respiratory failure with hypoxia; E44.1 Mild protein-calorie malnutrition; J18.9 Pneumonia, unspecified organism; F41.9 Anxiety disorder, unspecified; F31.9 Bipolar disorder, unspecified; J44.1 Chronic obstructive pulmonary disease with (acute) exacerbation; J44.0 Chronic obstructive pulmonary disease with (acute) lower respiratory infection; E66.01 Morbid (severe) obesity due to excess calories; F17.210 Nicotine dependence, cigarettes, uncomplicated; G47.33 Obstructive sleep apnea (adult) (pediatric); G89.29 Other chronic pain; R73.9 Hyperglycemia, unspecified; E88.09 Other disorders of plasma-protein metabolism, not elsewhere classified; K21.9 Gastro-esophageal reflux disease without esophagitis; M10.9 Gout, unspecified; Z68.31 Body mass index [BMI] 31.0-31.9, adult; F19.10 Other psychoactive substance abuse, uncomplicated; F39 Unspecified mood [affective] disorder; J98.11 Atelectasis; I10 Essential (primary) hypertension
CPT/HCPCS: 36415; 36600; 71045-TC; 76770-TC; 80048-TC; 80053-TC; 80061-TC; 80076-TC; 80202-TC; 80305; 81000-TC; 82570-TC; 82803-TC; 83605-TC; 83735-TC; 83880; 84100-TC; 84155-TC; 84300-TC; 84443-TC; 84484-TC; 85025-TC; 85378-TC; 85730-TC; 87040-TC; 87081-TC; 87086-TC; 87400; 93970-TC; 94799-TC; G0378; J1644; J2060; J2543; J2920; J2930; J3370; J7030; J7060

== ENCOUNTER 2019-01-08 11:28 | Inpatient (IN) | payer OTHER ==
[~2019-01-08] VITALS: Ht 188 cm; Wt 124.7 kg
[~2019-01-08 11:28] MED LIST: ALBU18HF2 IH; ALLO100T PO; AMLO10TA7 PO; ASPI-1169 PO; ATOR10TA PO; BENZ1LOZ12 MM; BUPR100T6 PO; FLUO-120 PO; HYDR-4384 PO; IBUP-1955 PO; LEVO750T21 PO; LORA1TAB PO; METH4TAB3 PO; METH500T PO; MULT-24 PO; QUET25TA PO; QUET300T2 PO; ZOLP10TA6 PO
[2019-01-08] MEDS ORDERED: NITROGLYCERIN PACKET 1 GM PACKET ONE (11:50)
[2019-01-08] MEDS ORDERED: FUROSEMIDE 40 MG/4 ML VIAL ONE (11:50)
[2019-01-08 11:53] LABS: BASOPHILS # (AUTO) 0.1 /CMM (0.0-0.2); EOSINOPHILS % (AUTO) 1.5 % (0.0-6.0); HEMATOCRIT 39 % (39-51); HEMOGLOBIN 13.2 g/dL (13.5-17.5); LYMPHOCYTES # (AUTO) 1.9 /CMM (0.8-4.8); LYMPHOCYTES % (AUTO) 20.3 % (20.0-44.0); MEAN CORPUSCULAR HGB CONC 33 g/dl (31.0-36.0); MEAN CORPUSCULAR VOLUME 86 fL (80-96); MONOCYTES # (AUTO) 0.4 /CMM (0.1-1.30); MONOCYTES % (AUTO) 4.5 % (2.0-12.0); NEUTROPHILS # (AUTO) 6.9 /CMM (1.8-8.9); NEUTROPHILS % (AUTO) 72.7 % (43.0-81.0); PLATELET COUNT (AUTO) 307 /CMM (150-450); RED BLOOD CELL COUNT(AUTO) 4.59 MIL/uL (4.5-6.0); WHITE BLOOD COUNT (AUTO) 9.5 K/uL (4.3-11.0)
[2019-01-08] MEDS ORDERED: ALBUTEROL FS 2.5 MG/3 ML VIAL.NEB CONTNEB ONE (12:00)
[2019-01-08] MEDS ORDERED: FURO-145 PO (12:00)
[2019-01-08] MEDS ORDERED: FUROSEMIDE 40 MG/4 ML VIAL IV ONE (12:00)
[2019-01-08] MEDS ORDERED: QUET400T PO (12:00)
[2019-01-08] MEDS ORDERED: LISI-603 PO (12:00)
[2019-01-08] MEDS ORDERED: BECL10.62 INH (12:00)
[2019-01-08] MEDS ORDERED: NITROGLYCERIN PACKET 1 GM PACKET TD ONE (12:00)
[2019-01-08] MEDS ORDERED: ARIP15TA3 PO (12:00)
[2019-01-08] MEDS ORDERED: IPRATROPIUM NEB FS 0.5 MG/2.5 ML AMPUL.NEB NEB ONE (12:00)
[2019-01-08 12:01] LABS: CALCIUM, SERUM 8.4 mg/dL (8.5-10.1); CARBON DIOXIDE 24 mmol/L (21-32); CHLORIDE 107 mmol/L (98-107); CREATININE 0.9 mg/dL (0.6-1.3); GLUCOSE 150 mg/dL (74-106); POTASSIUM 3.1 mmol/L (3.5-5.1); SODIUM SERUM 142 mmol/L (136-145); UREA NITROGEN, BLOOD 4 mg/dL (7-18)
[2019-01-08] MEDS ORDERED: ALBUTEROL FS 2.5 MG/3 ML VIAL.NEB ONE (12:08)
[2019-01-08] MEDS ORDERED: IPRATROPIUM NEB FS 0.5 MG/2.5 ML AMPUL.NEB ONE (12:08)
[2019-01-08 12:17] LABS: ALANINE AMINOTRANSFERASE 17 U/L (12-78); ALBUMIN 2.7 g/dL (3.4-5.0); ALKALINE PHOSPHATASE 163 U/L (46-116); ASPARTATE AMINOTRANSFERASE 19 U/L (15-37); B-TYPE NATRIURETIC PEPTIDE 41 PG/ML (0-125); BILIRUBIN,DIRECT 0.1 mg/dL (0.0-0.2); BILIRUBIN,TOTAL 0.4 mg/dL (0.2-1.0); TOTAL PROTEIN, SERUM 7.2 g/dL (6.4-8.2)
[2019-01-08] MEDS ORDERED: CEFTRIAXONE 1GM BAG (ER ONLY) 1 GM/50 ML PIGGYBACK IV ONE (12:30)
[2019-01-08] MEDS ORDERED: CEFTRIAXONE 1GM BAG (ER ONLY) 50 ML IV ONE (12:31)
[2019-01-08] MEDS ORDERED: ONDANSETRON HCL/PF 4 MG/2 ML VIAL IVP PRN (14:00)
[2019-01-08] MEDS ORDERED: MAGNESIUM HYDROXIDE 30 ML UDC PO PRN (14:00)
[2019-01-08] MEDS ORDERED: ALBUTEROL FS 2.5 MG/3 ML VIAL.NEB NEB PRN (14:00)
[2019-01-08] MEDS ORDERED: METHOCARBAMOL (500MG) 500 MG TABLET PO PRN (14:00)
[2019-01-08] MEDS ORDERED: HYDROCODONE/APAP 5/325MG 1 EACH TABLET PO PRN (14:00)
[2019-01-08] MEDS ORDERED: MAG HYDROX/AL HYDROX/SIMETH 30 ML UDC PO PRN (14:00)
[2019-01-08] MEDS ORDERED: Z GUARD REMEDY 2 OZ OINT TP PRN (14:00)
[2019-01-08] MEDS ORDERED: LORAZEPAM 1 MG TABLET PO PRN (14:00)
[2019-01-08] MEDS ORDERED: ALBUTEROL SULFATE 8 GM HFA.AER.AD IH PRN (14:00)
[2019-01-08] MEDS ORDERED: ACETAMINOPHEN 325 MG TABLET PO PRN (14:00)
[2019-01-08] MEDS ORDERED: ZOLPIDEM TARTRATE 5 MG TABLET PO PRN (14:00)
[2019-01-08 14:16] VITALS: BP 142/90
[2019-01-08] MEDS: methylPREDNISolone SOD SUCC 40 MG/ML VIAL IV SCH ×2 (14:49→17:15)
[2019-01-08] MEDS: ENOXAPARIN SODIUM 40 MG/0.4 ML DISP.SYRIN SQ SCH (14:50)
[2019-01-08] MEDS: AZITHROMYCIN 500 MG in IV D5W 250 ML IV SCH (14:53)
[2019-01-08] MEDS: IV NS 0.9% 250 ML IV PRN (14:53)
[2019-01-08] MEDS: ALBUTEROL FS 2.5 MG/0.5 ML VIAL.NEB NEB SCH ×3 (15:30→23:10)
[2019-01-08] MEDS: IPRATROPIUM NEB FS 0.5 MG/2.5 ML AMPUL.NEB NEB SCH ×3 (15:30→23:10)
[2019-01-08 16:00] VITALS: BP 160/93
[2019-01-08 18:49] LABS: APPEARANCE,URINE CLEAR (CLEAR); BILIRUBIN,URINE NEGATIVE (NEGATIVE); BLOOD, URINE TRACE Ery/uL (NEGATIVE); COLOR,URINE YELLOW (YELLOW); KETONES,URINE NEGATIVE (NEGATIVE); LEUKOCYTE ESTERASE ,URINE NEGATIVE (NEGATIVE); NITRITE, URINE NEGATIVE (NEGATIVE); PROTEIN,URINE NEGATIVE (NEGATIVE); UGLUCOSE NEGATIVE (NEGATIVE); UROBILINOGEN,URINE 0.2 EU/dL (0.2)
[2019-01-08 19:15] LABS: BACTERIA,URINE Rare /HPF (None Seen); RBC,URINE 0-2 /HPF (0-2); SQUAMOUS EPITHELIAL CELL,UR Rare /HPF (None Seen); WBC,URINE 0-2 /HPF (0-3)
[2019-01-08 20:00] VITALS: BP 134/73
[2019-01-08] MEDS: QUETIAPINE FUMARATE 100 MG TABLET PO SCH (21:12)
[2019-01-08] MEDS: ATORVASTATIN 10 MG TABLET PO SCH (21:12)
[2019-01-08] MEDS ORDERED: AMIODARONE 150 MG in IV D5W 100 ML IV ONE (23:30)
[2019-01-08] MEDS ORDERED: AMIODARONE 150 MG/3 ML VIAL IV ONE (23:49)
[2019-01-09] VITALS: BP 130/74
[2019-01-09] MEDS ORDERED: AMIODARONE 900 MG in IV D5W 482 ML IV PRN ×2
[2019-01-09] MEDS: IPRATROPIUM NEB FS 0.5 MG/2.5 ML AMPUL.NEB NEB SCH ×6 (03:04→23:30)
[2019-01-09 04:00] VITALS: BP 137/92
[2019-01-09 07:24] LABS: BASOPHILS # (AUTO) 0.1 /CMM (0.0-0.2); BASOPHILS % (AUTO) 0.9 % (0.0-2.0); HEMATOCRIT 42 % (39-51); HEMOGLOBIN 13.7 g/dL (13.5-17.5); MEAN CORPUSCULAR HGB CONC 33 g/dl (31.0-36.0); MEAN CORPUSCULAR VOLUME 86 fL (80-96); MONOCYTES # (AUTO) 0.3 /CMM (0.1-1.30); MONOCYTES % (AUTO) 2.5 % (2.0-12.0); NEUTROPHILS # (AUTO) 10.5 /CMM (1.8-8.9); NEUTROPHILS % (AUTO) 88.6 % (43.0-81.0); PLATELET COUNT (AUTO) 305 /CMM (150-450); RED BLOOD CELL COUNT(AUTO) 4.86 MIL/uL (4.5-6.0); WHITE BLOOD COUNT (AUTO) 11.9 K/uL (4.3-11.0)
[2019-01-09 07:32] LABS: ALBUMIN 2.5 g/dL (3.4-5.0); BILIRUBIN,TOTAL 0.2 mg/dL (0.2-1.0); CALCIUM, SERUM 8.8 mg/dL (8.5-10.1); MAGNESIUM 1.7 mg/dL (1.8-2.4); PHOSPHORUS 2.1 mg/dL (2.5-4.9); POTASSIUM 4.1 mmol/L (3.5-5.1); TOTAL PROTEIN, SERUM 7.4 g/dL (6.4-8.2)
[2019-01-09] MEDS: LEVALBUTEROL HCL NEB 1.25 MG/0.5 ML VIAL.NEB NEB SCH ×3 (07:49→23:30)
[2019-01-09 08:00] VITALS: BP 144/101
[2019-01-09] MEDS: FUROSEMIDE 20 MG TABLET PO SCH (08:41)
[2019-01-09] MEDS: methylPREDNISolone SOD SUCC 40 MG/ML VIAL IV SCH ×3 (08:41→17:07)
[2019-01-09] MEDS: LISINOPRIL (20MG) 20 MG TABLET PO SCH (08:42)
[2019-01-09] MEDS: QUETIAPINE FUMARATE 25 MG TABLET PO SCH (08:42)
[2019-01-09] MEDS: MULTIVITAMINS,THERAGRAN 1 UDTAB TABLET PO SCH (08:42)
[2019-01-09] MEDS: AMLODIPINE BESYLATE 10 MG TABLET PO SCH (08:43)
[2019-01-09] MEDS: ENOXAPARIN SODIUM 40 MG/0.4 ML DISP.SYRIN SQ SCH (08:43)
[2019-01-09] MEDS ORDERED: K PHOS NEUTRAL 250 MG TABLET PO ONE (10:00)
[2019-01-09] MEDS: FLUTICASONE/VILANTEROL 1 EACH BLST.W.DEV IH SCH (10:25)
[2019-01-09] MEDS: Magnesium 1GM/D5W 100ML PREMIX 100 ML IV SCH ×2 (10:28→12:18)
[2019-01-09] MEDS: CEFTRIAXONE 1 G in IV D5W 50 ML IV SCH (13:40)
[2019-01-09] MEDS: AZITHROMYCIN 500 MG in IV D5W 250 ML IV SCH (14:34)
[2019-01-09] MEDS ORDERED: DEXTROSE 50%-WATER 50 ML DISP.SYRIN IV PRN (15:00)
[2019-01-09] MEDS ORDERED: *INSULIN REGULAR(HUMULIN R)HUM 100 UNIT/ML VIAL SQ PRN (15:00)
[2019-01-09 16:00] VITALS: BP 140/93
[2019-01-09] MEDS: LACTOBACILLUS RHAMNOSUS GG 1 EACH CAP.SPRINK PO SCH (17:07)
[2019-01-09] MEDS: INSULIN REGULAR, HUMAN 100 UNIT/ML 3 ML VIAL SQ PRN ×2 (17:25→21:30)
[2019-01-09] MEDS: BLOOD SUGAR DIAGNOSTIC 1 EACH STRIP IN SCH ×2 (17:26→21:23)
[2019-01-09 20:00] VITALS: BP 172/96
[2019-01-09] MEDS: glipiZIDE 5 MG TABLET PO SCH (20:15)
[2019-01-09] MEDS ORDERED: CLONIDINE HCL 0.1 MG TABLET PO PRN (20:30)
[2019-01-09] MEDS: QUETIAPINE FUMARATE 100 MG TABLET PO SCH (21:25)
[2019-01-09] MEDS: ARIPIPRAZOLE 5 MG TABLET PO SCH (21:25)
[2019-01-09] MEDS: ATORVASTATIN 10 MG TABLET PO SCH (21:26)
[2019-01-10] MEDS: IPRATROPIUM NEB FS 0.5 MG/2.5 ML AMPUL.NEB NEB SCH ×6 (03:30→23:17)
[2019-01-10 04:00] VITALS: BP 128/92
[2019-01-10] MEDS: LEVALBUTEROL HCL NEB 1.25 MG/0.5 ML VIAL.NEB NEB SCH ×3 (07:35→23:17)
[2019-01-10] MEDS: BLOOD SUGAR DIAGNOSTIC 1 EACH STRIP IN SCH ×4 (07:41→21:47)
[2019-01-10 07:50] LABS: CALCIUM, SERUM 8.8 mg/dL (8.5-10.1); CREATININE 0.8 mg/dL (0.6-1.3); MAGNESIUM 2.3 mg/dL (1.8-2.4); PHOSPHORUS 2.9 mg/dL (2.5-4.9)
[2019-01-10 07:52] VITALS: BP 144/94
[2019-01-10 08:00] VITALS: BP 144/94
[2019-01-10] MEDS: INSULIN REGULAR, HUMAN 100 UNIT/ML 3 ML VIAL SQ PRN ×4 (09:55→21:59)
[2019-01-10] MEDS: ENOXAPARIN SODIUM 40 MG/0.4 ML DISP.SYRIN SQ SCH (09:56)
[2019-01-10] MEDS: MULTIVITAMINS,THERAGRAN 1 UDTAB TABLET PO SCH (09:58)
[2019-01-10] MEDS: methylPREDNISolone SOD SUCC 40 MG/ML VIAL IV SCH ×3 (09:58→16:43)
[2019-01-10] MEDS: AMLODIPINE BESYLATE 10 MG TABLET PO SCH (09:59)
[2019-01-10] MEDS: glipiZIDE 5 MG TABLET PO SCH ×2 (09:59→17:49)
[2019-01-10] MEDS: LISINOPRIL (20MG) 20 MG TABLET PO SCH (10:00)
[2019-01-10] MEDS: QUETIAPINE FUMARATE 25 MG TABLET PO SCH (10:00)
[2019-01-10] MEDS: LACTOBACILLUS RHAMNOSUS GG 1 EACH CAP.SPRINK PO SCH ×2 (10:00→17:49)
[2019-01-10] MEDS: FLUTICASONE/VILANTEROL 1 EACH BLST.W.DEV IH SCH (10:01)
[2019-01-10] MEDS: FUROSEMIDE 20 MG TABLET PO SCH (10:01)
[2019-01-10 12:00] VITALS: BP 148/88
[2019-01-10] MEDS: CEFTRIAXONE 1 G in IV D5W 50 ML IV SCH (13:47)
[2019-01-10] MEDS: AZITHROMYCIN 500 MG in IV D5W 250 ML IV SCH (14:52)
[2019-01-10 16:00] VITALS: BP 143/83
[2019-01-10] MEDS: IV NS 0.9% 250 ML IV PRN (16:46)
[2019-01-10] MEDS ORDERED: LACTOBACILLUS RHAMNOSUS GG 1 EACH CAP.SPRINK PO SCH (17:00)
[2019-01-10 20:00] VITALS: BP 137/98
[2019-01-10] MEDS: ARIPIPRAZOLE 5 MG TABLET PO SCH (21:47)
[2019-01-10] MEDS: ATORVASTATIN 10 MG TABLET PO SCH (21:48)
[2019-01-10] MEDS: QUETIAPINE FUMARATE 100 MG TABLET PO SCH (21:48)
[2019-01-11 04:00] VITALS: BP 144/97
[2019-01-11] MEDS: IPRATROPIUM NEB FS 0.5 MG/2.5 ML AMPUL.NEB NEB SCH ×3 (04:55→11:30)
[2019-01-11] MEDS: LEVALBUTEROL HCL NEB 1.25 MG/0.5 ML VIAL.NEB NEB SCH (07:35)
[2019-01-11 08:00] VITALS: BP 126/80
[2019-01-11] MEDS: BLOOD SUGAR DIAGNOSTIC 1 EACH STRIP IN SCH ×2 (08:05→12:04)
[2019-01-11] MEDS: glipiZIDE 5 MG TABLET PO SCH ×2 (08:22→16:48)
[2019-01-11] MEDS: FUROSEMIDE 20 MG TABLET PO SCH (08:22)
[2019-01-11] MEDS: LACTOBACILLUS RHAMNOSUS GG 1 EACH CAP.SPRINK PO SCH ×2 (08:22→16:48)
[2019-01-11] MEDS: methylPREDNISolone SOD SUCC 40 MG/ML VIAL IV SCH ×3 (08:22→16:49)
[2019-01-11] MEDS: LISINOPRIL (20MG) 20 MG TABLET PO SCH (08:23)
[2019-01-11] MEDS: QUETIAPINE FUMARATE 25 MG TABLET PO SCH (08:23)
[2019-01-11] MEDS: MULTIVITAMINS,THERAGRAN 1 UDTAB TABLET PO SCH (08:23)
[2019-01-11] MEDS: AMLODIPINE BESYLATE 10 MG TABLET PO SCH (08:23)
[2019-01-11] MEDS: ENOXAPARIN SODIUM 40 MG/0.4 ML DISP.SYRIN SQ SCH (08:24)
[2019-01-11] MEDS: FLUTICASONE/VILANTEROL 1 EACH BLST.W.DEV IH SCH (08:25)
[2019-01-11 12:00] VITALS: BP 128/64
[2019-01-11] MEDS: CEFTRIAXONE 1 G in IV D5W 50 ML IV SCH (14:55)
[2019-01-11] MEDS ORDERED: AZITHROMYCIN 250 MG TABLET PO SCH (15:00)
[2019-01-11] MEDS ORDERED: LEVALBUTEROL HCL NEB 1.25 MG/0.5 ML VIAL.NEB INH SCH (15:30)
== END 2019-01-11 16:57 | disposition home or self-care (01) | DRG 133 ==
LOC: ER 11:30 → TELE1 13:17 → TELE-TD 23:18 → MEDSG1 01-09 10:50
PROVIDERS: ADMIT Internal Medicine; ATTEND Internal Medicine
DX: J96.01 Acute respiratory failure with hypoxia (principal); J15.9 Unspecified bacterial pneumonia; I11.0 Hypertensive heart disease with heart failure; I50.32 Chronic diastolic (congestive) heart failure; E66.01 Morbid (severe) obesity due to excess calories; J44.0 Chronic obstructive pulmonary disease with (acute) lower respiratory infection; J44.1 Chronic obstructive pulmonary disease with (acute) exacerbation; J20.9 Acute bronchitis, unspecified; F41.9 Anxiety disorder, unspecified; F32.9 Major depressive disorder, single episode, unspecified; I25.10 Atherosclerotic heart disease of native coronary artery without angina pectoris; Z68.35 Body mass index [BMI] 35.0-35.9, adult; F17.210 Nicotine dependence, cigarettes, uncomplicated; Z59.0 Homelessness
CPT/HCPCS: 36415; 71045-TC; 80048-TC; 80053-TC; 80061-TC; 80076-TC; 80305; 81000-TC; 82945-TC; 82962-TC; 83605-TC; 83735-TC; 83880; 84100-TC; 84484-TC; 85025-TC; 85730-TC; 87040-TC; 87070-TC; 87081-TC; 93307-TC; 94799-TC; G0378; G0480; J0282; J0456; J0696; J1650; J1815; J1940; J2920; J3475; J7050; J7060

== ENCOUNTER 2021-02-21 11:47 | Emergency (ER) | payer OTHER ==
[~2021-02-21] VITALS: Ht 182.9 cm; Wt 98.9 kg
[~2021-02-21 11:47] MED LIST changes: -ALLO100T PO; +AMLO-213 PO; -AMLO10TA7 PO; +ARIP15TA3 PO; -ASPI-1169 PO; +BECL10.62 INH; -BENZ1LOZ12 MM; -BUPR100T6 PO; -FLUO-120 PO; -HYDR-4384 PO; -IBUP-1955 PO; -LEVO750T21 PO; +LISI20TA30 PO; -METH4TAB3 PO; -QUET300T2 PO; +QUET400T PO; -ZOLP10TA6 PO
--- NOTE | 2021-02-21 11:47 | NUR ---
PT BIBRA 38 AND [employer] FROM [employer] C/O AGITATION AND SUICIDAL IDEATION TO SPECIFIC PLANS. PT ADMITS TO USING DRUGS. PT IS AAOX3, NOT IN RESPIRATORY DISTRESS, HOOKED TO OUTDOOR EDUCATION TEACHER, KEPT RESTED AND COMFORTABLE. SITTER AT BEDSIDE. WILL CONTINUE TO MONITOR.
--- NOTE | 2021-02-21 12:03 | NUR ---
SEEN AND EXAMINED BY .
[2021-02-21] MEDS ORDERED: OLANZAPINE 10 MG VIAL IM ONE ×3 (12:11→18:00)
--- NOTE | 2021-02-21 12:17 | NUR ---
ER PHLEB AT BEDSIDE FOR BLOOD DRAW.
[2021-02-21 12:34] LABS: BASOPHILS # (AUTO) 0.1 K/uL (0.0-0.2); BASOPHILS % (AUTO) 1.2 % (0.0-2.0); HEMATOCRIT 43 % (39-51); HEMOGLOBIN 14.4 g/dL (13.5-17.5); LYMPHOCYTES # (AUTO) 2.5 K/uL (0.8-4.8); MEAN CORPUSCULAR HGB CONC 33 g/dl (31.0-36.0); MEAN CORPUSCULAR VOLUME 89 fL (80-96); MONOCYTES # (AUTO) 0.6 K/uL (0.1-1.30); MONOCYTES % (AUTO) 8.7 % (2.0-12.0); NEUTROPHILS # (AUTO) 3.9 K/uL (1.8-8.9); NEUTROPHILS % (AUTO) 54.1 % (43.0-81.0); PLATELET COUNT (AUTO) 378 K/uL (150-450); RED BLOOD CELL COUNT(AUTO) 4.84 MIL/uL (4.5-6.0); WHITE BLOOD COUNT (AUTO) 7.3 K/uL (4.3-11.0)
[2021-02-21 12:49] LABS: CALCIUM, SERUM 8.6 mg/dL (8.5-10.1); CREATININE 1.1 mg/dL (0.6-1.3); POTASSIUM 3.3 mmol/L (3.5-5.1)
[2021-02-21 12:52] LABS: ALBUMIN 3.5 g/dL (3.4-5.0); BILIRUBIN,DIRECT 0.2 mg/dL (0.0-0.2); BILIRUBIN,TOTAL 0.5 mg/dL (0.2-1.0); TOTAL PROTEIN, SERUM 7.7 g/dL (6.4-8.2)
[2021-02-21] MEDS ORDERED: POTASSIUM CHLORIDE 20 MEQ TAB.PRT.SR PO ONE ×2 (13:13→13:30)
--- NOTE | 2021-02-21 15:03 | NUR ---
COVID SWAB SENT.
[2021-02-21 18:25] LABS: BILIRUBIN,URINE SMALL (NEGATIVE); COLOR,URINE YELLOW (YELLOW); LEUKOCYTE ESTERASE ,URINE NEGATIVE (NEGATIVE); NITRITE, URINE NEGATIVE (NEGATIVE); PROTEIN,URINE 100 mg/dl (NEGATIVE); UGLUCOSE NEGATIVE (NEGATIVE); UROBILINOGEN,URINE 0.2 EU/dL (0.2)
[2021-02-21 18:34] LABS: BACTERIA,URINE Few /HPF (None Seen); HYALINE CASTS, URINE Few /LPF (None Seen); SQUAMOUS EPITHELIAL CELL,UR Few /HPF (None Seen); WBC,URINE 0-2 /HPF (0-3)
--- NOTE | 2021-02-21 20:49 | NUR ---
KELSIE, CRISIS CLINICAN, WILL COME IN AN HOUR TO EVALUATE HOLD
--- NOTE | 2021-02-21 21:33 | NUR ---
YOGI, CRISIS CLINICAN WILL COME TO SEE PT AND EVALUATE HOLD IN 45 MIN
--- NOTE | 2021-02-22 02:18 | NUR ---
PT ACCEPTED AT [facility] UNDER THE CARE OF DR. COTE TO [phone] EXT [phone]
[2021-02-22] MEDS ORDERED: OLANZAPINE 10 MG VIAL IM ONE ×2 (06:05→06:30)
--- NOTE | 2021-02-22 06:05 | NUR ---
CALLED [facility] FOR TRANSPORTATION TO [facility]. BORIS FROM [facility] SAID ETA [phone].
--- NOTE | 2021-02-22 06:11 | NUR ---
CALLED TO GIVE REPORT BUT WAS ADVICED TO CALL BACK AFTER CHANGE SHIFT.
--- NOTE | 2021-02-22 07:58 | NUR ---
REPORT GIVEN TO NURSE SATNAM FOR HUGO AT THE [facility].
--- NOTE | 2021-02-22 07:58 | NUR ---
Tono sanchez in [facility] - 02/22/21 at 0758 by PHIL soni bernardo
[2021-02-22 08:25] VITALS: BP 135/81
--- NOTE | 2021-02-22 09:14 | NUR ---
patient left via gurney accompanied by emt in no distress going to [facility].
== END 2021-02-22 09:14 ==
LOC: ER 11:52
DX: R46.2 Strange and inexplicable behavior (principal); I10 Essential (primary) hypertension; E78.5 Hyperlipidemia, unspecified; M10.9 Gout, unspecified; G89.29 Other chronic pain; Z79.899 Other long term (current) drug therapy; Z20.822 Contact with and (suspected) exposure to COVID-19; R60.0 Localized edema; E87.5 Hyperkalemia; M25.551 Pain in right hip
CPT/HCPCS: 36415; 73502; 73552; 80048; 80076; 80143; 80307; 80320; 81001; 85025; 87426; 96372 ×2; 99285; C9803; J3490 ×2; G0480

== ENCOUNTER 2021-11-05 19:40 | Emergency (ER) | payer OTHER ==
[~2021-11-05] VITALS: Ht 185.4 cm; Wt 127.0 kg
--- NOTE | 2021-11-05 20:11 | NUR ---
TO ER BED 14. BIBSELF C/O RIGHT ELBOW INJURY X 3 DAYS. NO DEFORMITY NOTED. CHANGED UNTO GOWN. CONNECTED TO MONITOR. AWAITING MD PENA.
[2021-11-05 21:45] LABS: CALCIUM, SERUM 8.2 mg/dL (8.5-10.1); CREATININE 0.8 mg/dL (0.6-1.3); POTASSIUM 3.9 mmol/L (3.5-5.1)
[2021-11-05] MEDS ORDERED: IBUP-1957 PO (21:52)
--- NOTE | 2021-11-05 21:57 | NUR ---
Patient discharged to home in stable condition. Written and verbal after care instructions given. Patient verbalizes understanding of instruction.
[2021-11-05 21:58] VITALS: BP 140/90
== END 2021-11-05 22:05 | disposition home or self-care (01) ==
LOC: ER 20:07
DX: M25.521 Pain in right elbow (principal); I10 Essential (primary) hypertension; E78.5 Hyperlipidemia, unspecified; M10.9 Gout, unspecified; G89.29 Other chronic pain; Z79.899 Other long term (current) drug therapy
CPT/HCPCS: 36415; 73080-TC; 80048-TC

== ENCOUNTER 2022-05-22 08:01 | Emergency (ER) | payer OTHER ==
[~2022-05-22] VITALS: Ht 185.4 cm; Wt 104.3 kg
[~2022-05-22 08:01] MED LIST changes: +IBUP-1957 PO
[2022-05-22] MEDS ORDERED: KETOROLAC TROMETHAMINE INJ 60 MG/2 ML VIAL IM ONE (08:30)
[2022-05-22] MEDS ORDERED: ALBUTEROL FS 2.5 MG/3 ML VIAL.NEB NEB ONE (08:30)
[2022-05-22] MEDS ORDERED: IPRATROPIUM NEB FS 0.5 MG/2.5 ML AMPUL.NEB NEB ONE (08:30)
[2022-05-22] MEDS ORDERED: predniSONE 20 MG TABLET PO ONE (08:30)
[2022-05-22 08:52] LABS: BASOPHILS % (AUTO) 0.5 % (0.0-2.0); EOSINOPHILS % (AUTO) 0.9 % (0.0-6.0); HEMATOCRIT 47 % (39-51); HEMOGLOBIN 15.6 g/dL (13.5-17.5); LYMPHOCYTES # (AUTO) 0.9 K/uL (0.8-4.8); LYMPHOCYTES % (AUTO) 14.5 % (20.0-44.0); MEAN CORPUSCULAR HGB CONC 33 g/dl (31.0-36.0); MEAN CORPUSCULAR VOLUME 87 fL (80-96); MONOCYTES # (AUTO) 0.4 K/uL (0.1-1.30); NEUTROPHILS # (AUTO) 4.9 K/uL (1.8-8.9); NEUTROPHILS % (AUTO) 77.1 % (43.0-81.0); PLATELET COUNT (AUTO) 324 K/uL (150-450); RED BLOOD CELL COUNT(AUTO) 5.38 MIL/uL (4.5-6.0); WHITE BLOOD COUNT (AUTO) 6.3 K/uL (4.3-11.0)
[2022-05-22 09:03] LABS: POTASSIUM 3.7 mmol/L (3.5-5.1)
[2022-05-22] MEDS ORDERED: KETOROLAC TROMETHAMINE INJ 30 MG/ML VIAL ONE ×2 (09:13→09:18)
[2022-05-22] MEDS ORDERED: predniSONE 20 MG TABLET ONE ×2 (09:13→09:18)
[2022-05-22] MEDS ORDERED: IPRATROPIUM NEB FS 0.5 MG/2.5 ML AMPUL.NEB ONE (09:19)
[2022-05-22] MEDS ORDERED: ALBUTEROL FS 2.5 MG/3 ML VIAL.NEB ONE (09:19)
--- NOTE | 2022-05-22 10:59 | NUR ---
COVID SWAB COLLECTED AND SENT TO LAB
--- NOTE | 2022-05-22 11:00 | NUR ---
BIBRA C/O COUGH X 4 DAYS, NO SOB
[2022-05-22] MEDS ORDERED: IV NS 0.9% 250 ML IV ONE (11:02)
[2022-05-22] MEDS ORDERED: CT SWABBABLE VALVE TRANS SET 1 EA INFUS.SET MC ONE (11:02)
[2022-05-22] MEDS ORDERED: IOHEXOL-350 100 ML VIAL IV ONE (11:02)
--- NOTE | 2022-05-22 12:52 | NUR ---
URINE SAMPLE SENT TO LAB
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
--- NOTE | 2022-05-22 13:14 | NUR ---
Patient discharged to home in stable condition. Written and verbal after care instructions given.
[2022-05-22 13:16] VITALS: BP 125/85
== END 2022-05-22 13:14 | disposition home or self-care (01) ==
LOC: ER 08:06
DX: B34.9 Viral infection, unspecified (principal); M79.10 Myalgia, unspecified site; Z20.822 Contact with and (suspected) exposure to COVID-19; E87.1 Hypo-osmolality and hyponatremia; Z59.00 Homelessness unspecified; I10 Essential (primary) hypertension; E78.5 Hyperlipidemia, unspecified; G89.29 Other chronic pain; Z79.899 Other long term (current) drug therapy; R51.9 Headache, unspecified; J43.8 Other emphysema
CPT/HCPCS: 99285; 71275; 71046; 87426; 85025; 80048; 36415; 94640; 96372; 71045; J7512 ×2; J1885 ×2; J7050; Q9967; C9803